=== PATIENT | male | born 1985 | race Caucasian/White ===

== ENCOUNTER 2018-03-06 10:14 | Day surgery (SDC) | payer OTHER ==
--- NOTE | 2018-03-06 10:41 | ED ---
Abdominal Pain/Male - HPI Summary HPI Summary: This pt is a 32 y/o male presenting to [facility] c/o abd pain since this morning. Pt reports he was driving to work when he suddenly had abd pain. Pt notes his abd pain starts on the left side of abdomen and radiates to the right side of abdomen and into his back. His abd pain is aggravated with standing up. Additionally reports nausea. He currently rates his abd pain 7 or 8 out of 10 in severity. Denies vomiting, diarrhea, constipation, chest pain, SOB, fever. Pt reports he has never had this pain in the past. Denies any PMHx. - History of Current Complaint Chief Complaint: EDAbdPain Stated Complaint: ABD PAIN Time Seen by Provider: 03/06/18 10:29 Hx Obtained From: Patient Onset/Duration: Lasting Hours, Still Present Timing: Lasting Hours Severity Currently: Moderate Pain Intensity: 8 Pain Scale Used: 0-10 Numeric Location: Other - left sided Radiates: Yes Radiates to: Back, Other - right sided abd Aggravating Factor(s): Other: - standing up Alleviating Factor(s): Nothing Associated Signs And Symptoms: Positive: Nausea. Negative: Fever, Chest Pain, Constipation, Vomiting, Diarrhea - Allergies/Home Medications Allergies/Adverse Reactions: Allergies Allergy/AdvReac Type Severity Reaction Status Date / Time No Known Allergies Allergy Verified 03/06/18 10:25 Home Medications: Home Medications NK [No Home Medications Reported] 03/06/18 [History Confirmed 03/06/18] PMH/Surg Hx/FS Hx/Imm Hx Endocrine/Hematology History: Denies: Hx Diabetes Cardiovascular History: Denies: Hx Hypertension GI History: Reports: Hx Gastroesophageal Reflux Disease - Surgical History Surgery Procedure, Year, and Place: Knee surgery Infectious Disease History: No Infectious Disease History: Denies: Traveled Outside the [place] in Last 30 Days - Family History Known Family History: Positive: Diabetes - Social History Alcohol Use: Weekly Substance Use Type: Reports: None Smoking Status (MU): Heavy Every Day Tobacco Smoker Review of Systems Negative: Fever, Chills Negative: Chest Pain Negative: Shortness Of Breath Positive: Abdominal Pain, Nausea. Negative: Vomiting, Diarrhea, Other - constipation Neurological: Negative All Other Systems Reviewed And Are Negative: Yes Physical Exam - Summary Physical Exam Summary: VITAL SIGNS: Reviewed. GENERAL: Patient is a well-developed and nourished male who is lying comfortable in the stretcher. Patient is not in any acute respiratory distress. HEAD AND FACE: Normocephalic and atraumatic. EYES: PERRLA, EOMI x 2, No injected conjunctiva. EARS: Hearing grossly intact. Ear canals and tympanic membranes are WNL. MOUTH: Oropharynx within normal limits. NECK: Supple, trachea is midline, no adenopathy, no JVD. CHEST: Symmetric, no tenderness at palpation LUNGS: Clear to auscultation bilaterally. No wheezing or crackles. CVS: RRR, S1 and S2 present, no murmurs or gallops appreciated. ABDOMEN: Soft, Diffuse abdominal tenderness in RLQ and LUQ. No signs of distention. Positive bowel sounds. No rebound no guarding, and no masses palpated. No abdominal bruit or pulsations. EXTREMITIES: FROM in all major joints, no edema, no cyanosis or clubbing. NEURO: Alert and oriented x 3. No acute neurological deficits. Speech is normal. SKIN: Dry and warm Triage Information Reviewed: Yes Vital Signs On Initial Exam: Initial Vitals Temp Pulse Resp BP Pulse Ox 97.8 F 65 16 123/85 99 03/06/18 10:23 03/06/18 10:23 03/06/18 10:23 03/06/18 10:23 03/06/18 10:23 Vital Signs Reviewed: Yes Diagnostics - Vital Signs Vital Signs Temp Pulse Resp BP Pulse Ox 03/06/18 10:23 97.8 F 65 16 123/85 99 - Laboratory Result Diagrams: 03/06/18 10:55 03/06/18 10:55 Lab Statement: Any lab studies that have been ordered have been reviewed, and results considered in the medical decision making process. - CT Abdomen/Pelvis CT CT Interpretation Completed By: Radiologist Summary of CT Findings: IMPRESSION: The appendix is thickened measuring 8 mm in diameter. Acute appendicitis is not excluded. No evidence of bowel obstruction is noted. No abnormal fluid collections are noted. Dr. Tripathi has reviewed this report. Re-Evaluation - Re-Evaluation First Eval Re-Evaluation Time: 15:10 Comment: Dr. Rodriguez, surgeon, at bedside. Second Eval Re-Evaluation Time: 15:51 Comment: Dr. Rodriguez accepted the pt for admission. Abdominal Pain Fem Course/Dx - Course Assessment/Plan: This pt is a 32 y/o male presenting to [facility] c/o abd pain since this morning. Pt reports he was driving to work when he suddenly had abd pain. Pt notes his abd pain starts on the left side of abdomen and radiates to the right side of abdomen and into his back. His abd pain is aggravated with standing up. Additionally reports nausea. He currently rates his abd pain 7 or 8 out of 10 in severity. Denies vomiting, diarrhea, constipation, chest pain, SOB, fever. Pt reports he has never had this pain in the past. Denies any PMHx. Blood work without any significant abnormality except for WBCs of 12.5, glucose 108, magnesium 1.8, and CRP is less than 1. Abdominal pelvic CT impression: The appendix is thickened measuring 8 mm in diameter. Acute appendicitis is not excluded. No evidence of bowel obstruction is noted. No abnormal fluid collections are noted. I discussed my physical exam, findings and test results with Dr. Rodriguez from surgery who came and assessed the patient and accepted the patient for admission for possible appendectomy. At this point the patient is hemodynamically stable, alert and oriented 3. - Diagnoses Provider Diagnoses: Acute appendicitis Discharge - Sign-Out/Discharge Documenting (check all that apply): Patient Departure - Admit to [facility] All imaging exams completed and their final reports reviewed: Yes - Discharge Plan Condition: Stable Disposition: ADMITTED TO [facility] - Billing Disposition and Condition Condition: STABLE Disposition: Admitted to [facility] - Attestation Statements Document Initiated by Elliott: Yes Documenting Scribe: Shonna Hemphill Provider For Whom Elliott is Documenting (Include Credential): Gabe Tripathi MD Scribe Attestation: Shonna Celis, scribed for Gabe Tripathi MD on 03/06/18 at 1844. Scribe Documentation Reviewed: Yes Provider Attestation: The documentation as recorded by the Shonna perez accurately reflects the service I personally performed and the decisions made by me, Gabe Tripathi MD Status of Scribe Document: Viewed
[2018-03-06] MEDS ORDERED: Ondansetron INJ* 2 MG/ML VIAL IV ONE (10:45)
[2018-03-06] MEDS ORDERED: NS 0.9% 1000 ML* 1,000 ML IV ONE (10:45)
[2018-03-06 11:08] LABS: ABS Basophils 0.1 10^3/ul (0-0.2); ABS Eosinophils 0 10^3/ul (0-0.6); ABS Lymphocytes 1.3 10^3/ul (1.0-4.8); ABS Monocytes 0.8 10^3/ul (0-0.8); ABS Neutrophils 10.3 10^3/ul (1.5-7.7); ABS Nucleated RBC 0 10^3/ul; Eosinophil % 0.4 %; Hematocrit 47 % (42-52); Hemoglobin 16.2 g/dl (14.0-18.0); Lymphocyte % 10.3 %; Mean Corpuscular HGB Conc 34 g/dl (31-36); Mean Corpuscular Hemoglobin 32 pg (27-31); Mean Corpuscular Volume 93 fL (80-94); Mean Platelet Volume 8.6 fL (7.4-10.4); Nucleated Red Blood Cells % 0.1; Platelet Count 161 10^3/ul (150-450); Red Blood Count 5.07 10^6/ul (4.00-5.40); Red Cell Distribution Width 12 % (10.5-15); White Blood Count 12.5 10^3/ul (3.5-10.8)
[2018-03-06 11:50] LABS: EGFR Non-African American 97.2 (>60)
[2018-03-06] MEDS ORDERED: Iohexol 300* (CONTRAST) 10 ML SDV IV ONE (12:22)
[2018-03-06 12:51] LABS: Urine Appearance Cloudy; Urine Blood Negative (Negative); Urine Color Yellow; Urine Ketones Negative (Negative); Urine Protein Negative (Negative); Urine Specific Gravity 1.025 (1.010-1.030); Urine Urobilinogen Negative (Negative)
--- NOTE | 2018-03-06 16:29 | HP ---
DATE OF ADMISSION: 03/06/2018. CHIEF COMPLAINT: Right lower quadrant abdominal pain. HISTORY OF PRESENT ILLNESS: Mr. Leno Calero is a healthy, 32-year-old gentleman who woke up this morning with mid abdominal discomfort which radiated down to the left and the right lower quadrants and subsequently became localized in the right lower quadrant. This was associated with nausea without vomiting. He had no diarrhea. He did not have fevers. He has been anorexic. He had never had discomfort this way in this severity and he presented to the emergency room later this morning. He was noted to be afebrile. He had a white blood cell count elevation just under 12,500. The remainder of his laboratory work-up was essentially unremarkable. He did undergo a CT scan of the abdomen and pelvis. I did review these films. It shows findings of a thickened appendix which does not contain contrast. There is some periappendiceal inflammation without evidence of abscess or perforation. This was felt to represent possible acute appendicitis and surgical consultation was obtained. PAST MEDICAL HISTORY: Gastroesophageal reflux disease. PAST SURGICAL HISTORY: Right knee surgery. ALLERGIES: He has no known drug allergies. SOCIAL HISTORY: He smokes. He does not drink alcohol. He is . He works as a heating repair and installation. REVIEW OF SYSTEMS: Otherwise unremarkable. PHYSICAL EXAMINATION GENERAL: Well-developed, well-nourished male in no apparent distress. VITAL SIGNS: Temperature 97.8, pulse 65, blood pressure 123/85. HEENT: Scleral anicteric. Oral mucosa is slightly dry. LUNGS: Clear to auscultation with normal respiratory effort. HEART: Regular rate and rhythm without murmurs, rubs, or gallops. ABDOMEN: Soft, nondistended. Diminished bowel sounds throughout. There are no prior surgical incisions or hernias. He has tenderness in the right lower quadrant with some voluntary guarding. There are no inguinal hernias noted. PSYCHIATRIC: He is awake, alert, and oriented times three. He has normal judgment and insight. IMPRESSION: Acute appendicitis. This is consistent with both his history and physical exam and the CT scan findings as well. PLAN: Laparoscopic appendectomy. I do recommend that he undergo a laparoscopic appendectomy today for treatment of his acute appendicitis. We discussed alternatives as well as the definitive treatment with surgery to prevent future reoccurrence and complications. The procedure was discussed in detail with the patient and the risks of, but no limited to bleeding, infection, possibility of an open procedure, injury to peritoneal and retroperitoneal structures, abscess formation, the risks of general anesthesia, deep vein thrombosis as well as recovery times and time off from work were all discussed. He will be kept NPO and receive IV antibiotics. We will proceed later this evening. [id number]/[facility] #: [id number] MTDD
[2018-03-06] MEDS ORDERED: Buffered Lidocaine 0.9% SYRIN* 5 ML/SYR SYRINGE INTRADERM ONE (17:00)
[2018-03-06] MEDS ORDERED: fentaNYL* 50 MCG/ML 2 ML VIAL (100 MCG VIAL) ONE ×2 (18:31→19:48)
[2018-03-06] MEDS ORDERED: Famotidine IV* 10 MG/ML 2 ML (20 mg) ONE (18:31)
[2018-03-06] MEDS ORDERED: Midazolam* 1 MG/ML 2 ML VIAL (2 MG) ONE (18:31)
[2018-03-06] MEDS ORDERED: Bupivacaine 0.5% W/EPI SDV* 30 ML VIAL ONE (19:11)
[2018-03-06] MEDS ORDERED: Lidocaine 2% PF * 5 ML VIAL ONE (19:23)
[2018-03-06] MEDS ORDERED: Dexamethasone IV* 4 MG/ML 1 ML (4 MG) ONE ×2 (19:23→20:04)
[2018-03-06] MEDS ORDERED: Ketorolac INJ* 30 MG/ML 1 ML VIAL ONE (19:23)
[2018-03-06] MEDS ORDERED: Propofol* 10 MG/ML 20 ML BTL ONE ×2 (19:23→20:01)
[2018-03-06] MEDS ORDERED: HYDROcodone/ACETAMIN 5-325 MG* 1 TAB PO PRN ×2 (19:24)
[2018-03-06] MEDS ORDERED: fentaNYL* 50 MCG/ML 2 ML VIAL (100 MCG VIAL) IV PRN (19:24)
[2018-03-06] MEDS ORDERED: diPHENhydraMINE IV* 50 MG/ML 1 ml VIAL (BENADRYL) IV PRN (19:24)
[2018-03-06] MEDS ORDERED: Ondansetron INJ* 2 MG/ML VIAL IV PRN (19:24)
[2018-03-06] MEDS ORDERED: PROCHLORPERAZINE INJ 5 MG/ML 2 ML VIAL IV PRN (19:24)
[2018-03-06] MEDS ORDERED: Succinylcholine* 20 MG/ML 10 ML VIAL ONE (19:24)
[2018-03-06] MEDS ORDERED: Naloxone* 0.4 MG/ML 1 ML VIAL IV PRN (19:24)
[2018-03-06] MEDS ORDERED: DiMENhydriNATE IV* 50 MG/ML VIAL IV PUSH PRN (19:24)
[2018-03-06] MEDS ORDERED: Acetaminophen TAB* 325 MG PO PRN (19:24)
[2018-03-06] MEDS ORDERED: Cisatracurium* 2 MG/ML MDV 5 ML ONE (19:24)
[2018-03-06] MEDS ORDERED: ZOSYN 3.375 GM x ONE DOSE over 30 miuntes IVPB ×2 (19:45)
[2018-03-06] MEDS ORDERED: KETAMINE HCL* 50 MG/ML 10 ML VIAL ONE (20:01)
[2018-03-06] MEDS ORDERED: Labetalol IV* 5 MG/ML 20 ML VIAL ONE (20:21)
--- NOTE | 2018-03-06 20:54 | BRIEFOPN ---
Brief Operative Note - Surgery Procedures: OPERATIVE REPORT PRE-OP: Acute appendicitis POST-OP:Same PROCEDURE:Laparoscopic appendectomy SURGEON: MD Michael ANESTHESIA:Local with General, Dr. Arriaga ASST:none IVF:1 liter crystalloid EBL:min SPECIMEN:Appendix DRAIN: none WOUND CLASS:3 COMPLICATIONS: none TO PACU
[2018-03-06 21:56] VITALS: BP 109/74
--- NOTE | 2018-03-07 15:37 | OP ---
DATE OF OPERATION: 03/06/18 - [facility] DATE OF : 83 SURGEON: Liban Rodriguez MD CHICKEN CUTTER: None. ANESTHESIOLOGIST: Dr. Arriaga. ANESTHESIA: General with local. PRE-OP DIAGNOSIS: Acute appendicitis. POST-OP DIAGNOSIS: Acute appendicitis. OPERATIVE PROCEDURE: Laparoscopic appendectomy. ESTIMATED BLOOD LOSS: Minimal. WOUND CLASSIFICATION: II. COMPLICATIONS: None. DRAINS: None. SPECIMENS: Appendix. BRIEF HISTORY: Mr. Vick Calero is a 32-year-old gentleman who presented to the emergency room with 12 hours of abdominal pain in the right lower quadrant. A CT scan confirmed acute appendicitis. DESCRIPTION OF PROCEDURE: Written informed consent was obtained, the abdomen was marked with indelible ink and preoperative antibiotics were administered. The patient was taken to the operating room and placed in a supine position. Sequential compression devices and a warming blanket were applied. General anesthesia was administered and the abdomen was prepped and draped in the usual sterile fashion. Time-out verification was completed. Initially, a small transverse incision was made just above the umbilicus in the midline. The peritoneal cavity was entered under direct vision. A 12-mm blunt port was inserted and the abdomen was insufflated to 15 mmHg. Under direct vision, a 5-mm port was placed in the left lower quadrant abdominal wall and a second 5-mm port was placed in the suprapubic position. Right lower quadrant was identified. There was a small amount of thin serous fluid in the pelvis as well as the right lower quadrant. The terminal ileum and cecum appeared to be unremarkable. The appendix was identified. It was indurated and thick walled without evidence of gangrene or perforation. There was only a minimal suppuration noted. The mesoappendix was taken sequentially using a LigaSure device from the tip to the base of the appendix. The base of the appendix as well as the cecum were unremarkable and a harden load of 45 mm stapler was used to divide the appendix at its base. The staple line was intact without bleeding. The appendix was removed with an EndoCatch bag through the umbilical incision. Right lower quadrant was irrigated. Hemostasis was assured. All ports were removed under direct vision of the camera. There was no abdominal wall bleeding. The umbilical fascia was then closed with several 0 Vicryl sutures. The skin at all 3 incisions was approximated with subcuticular 4-0 Vicryl suture. Steri- Strips were applied. The patient tolerated the procedure well and was taken to the recovery room in stable condition. [id number]/[facility] #: [id number] [facility]Jose
== END 2018-03-06 22:09 | disposition home or self-care (01) ==
LOC: ED 10:14 → OR 15:47
PROVIDERS: ATTEND Surgery
DX: K35.80 Unspecified acute appendicitis (principal); R10.31 Right lower quadrant pain; K21.9 Gastro-esophageal reflux disease without esophagitis; Z72.0 Tobacco use
CPT/HCPCS: 36415; 74177; 80053; 81003; 82150; 83605; 83690; 83735; 84484; 85025; 86140; 88304; 99285; C1776; J0330; J1100; J1885; J2250; J2405; J2543; J2704; J3010; Q9967